=== PATIENT | male | born 1980 | race Caucasian/White ===

== ENCOUNTER 2016-07-18 11:04 | Emergency (ER) | payer SELFPAY ==
--- NOTE | ~2016-07-18 | CR63 ---
[facility] A Service of [facility] RADIOLOGY TEXT RESULTS PATIENT: ZAID COLMENARES LOCATION: [facility] : 76 UNIT #: [id number] AGE: [address]: Jaci Navarro APRN SEX: M ORDER DR: [id number] [facility] [address] [place], [place] [address] [id number] E MR#: [id number] Acc #: [id number] NAME: ZAID COLMENARES : 1980 SEX: M STUDY DATE/TIME: 07/18/2016 10:02 UNIT: [facility] ROOM: STUDY DESCRIPTION: CR Chest 2 View Attending Physician: Jaci Navarro A.P.R.N. Ordering Physician: Elsy Stover M.D. Primary Care Physician: Ferny Quinones M.D. MEDICAL IMAGING REPORT This report is preliminary unless electronic signature is present EXAM Two-view chest INDICATION Cough for the past 3 days. PROCEDURE Frontal and lateral views of the chest. COMPARISON 05/31/2016 FINDINGS Heart size is normal. Lungs are clear. No pleural fluid. No pneumothorax. IMPRESSION No active process. No dense consolidation. Dictated by... Giovanni Cornejo M.D. THIS IS AN ELECTRONICALLY VERIFIED REPORT Giovanni Cornejo M.D. at 07/18/2016 4:51 PM Rizwan TD: 07/18/2016 11:41 JOB #: [id number] MEDICAL IMAGING REPORT Page 1 of 1 COPY
[2016-07-18 10:26] LABS: INFLUENZA A NEG (NEG); INFLUENZA B POS (NEG)
[~2016-07-18 11:04] MED LIST: ALBUTEROL17 GM INH; AMOXICILLI200 MG/5 M PO; AMOXICILLIN250 MG PO; AMOXICILLIN500 M1 PO; ANTIVERT PO; AURALGAN OTIC S10 ML AD; BENZONATATE PO; DERMACORT1 GM EXT; DOXYCYCLINE HY100 M1 PO; FLEXERIL PO; NAPROSYN500 MG PO; NO MEDICATIONS; PEN-VEE K PO; PHENERGAN DM1 ML PO; SUDAFED30 M1 PO; ULTRAM PO; VOLTAREN75 MG PO
== END 2016-07-18 11:35 | disposition home or self-care (01) ==
LOC: CED 11:04
PROVIDERS: Emergency Medicine
DX: J10.1 Influenza due to other identified influenza virus with other respiratory manifestations (principal); J45.909 Unspecified asthma, uncomplicated; F17.210 Nicotine dependence, cigarettes, uncomplicated; Z98.890 Other specified postprocedural states; Z88.6 Allergy status to analgesic agent
CPT/HCPCS: 71020; 87804; 99283

== ENCOUNTER 2016-10-13 18:37 | Inpatient (IN) | payer OTHER ==
--- NOTE | ~2016-10-13 | CR72 ---
[facility] A Service of [facility] & [facility] RADIOLOGY TEXT RESULTS PATIENT: ZAID COLMENARES LOCATION: [facility] : [birth year] UNIT #: [id number] AGE: [address]: Jason Dominguez MD SEX: M ORDER DR: [id number] [facility] [address]. [place], [place] [address] [id number] I MR#: [id number] Acc #: [id number] NAME: ZAID COLMENARES : 1980 SEX: M STUDY DATE/TIME: 10/13/2016 21:19 UNIT: [facility] ROOM: [facility] STUDY DESCRIPTION: CR Chest Single View Portable Attending Physician: Jason Dominguez M.D. Ordering Physician: Andrea Garcia M.D. Primary Care Physician: Ferny Quinones M.D. MEDICAL IMAGING REPORT This report is preliminary unless electronic signature is present EXAM Single view chest INDICATION Chest pain. 1-day duration. FINDINGS Single portable AP view of the chest compared to 07/18/2016. Heart and mediastinal contours are within normal limits. This is no acute consolidation. There is a benign calcified granuloma in the left lower lobe. No pleural effusion. IMPRESSION No acute cardiopulmonary findings. Dictated by... Blayne Tobias M.D. THIS IS AN ELECTRONICALLY VERIFIED REPORT Blayne Tobias M.D. at 10/14/2016 4:55 PM Lizette TD: 10/14/2016 11:01 JOB #: [id number] MEDICAL IMAGING REPORT Page 1 of 1 COPY
--- NOTE | ~2016-10-13 | EKG ---
PATIENT: ZAID COLMENARES UNIT #: [id number] Ventricular Rate: 57 BPM Atrial Rate: 57 BPM P-R Interval: 132 ms QRS Duration: 106 ms Q-T Interval: 474 ms QTC Calculation(Bezet): 461 ms P [place]: 33 degrees Calculated R [place]: 29 degrees Calculated T [place]: 71 degrees Diagnosis Line: Sinus bradycardia Diagnosis Line: T wave abnormality, consider anterolateral Diagnosis Line: ischemia Diagnosis Line: Prolonged QT Diagnosis Line: Abnormal ECG Diagnosis Line: When compared with ECG of 13-OCT-2016 18:42, Diagnosis Line: No significant change was found Diagnosis Line: Confirmed by MALINDA MCCONNELL MD ([id number]) on Diagnosis Line: 10/15/2016 10:50:58 AM INTERPRETING BARBRA ORO
--- NOTE | ~2016-10-13 | EKG ---
PATIENT: ZAID COLMENARES UNIT #: [id number] Ventricular Rate: 69 BPM Atrial Rate: 69 BPM P-R Interval: 136 ms QRS Duration: 98 ms Q-T Interval: 414 ms QTC Calculation(Bezet): 443 ms P [place]: 61 degrees Calculated R [place]: 45 degrees Calculated T [place]: 52 degrees Diagnosis Line: Normal sinus rhythm Diagnosis Line: Nonspecific T wave abnormality Diagnosis Line: Abnormal ECG Diagnosis Line: When compared with ECG of 14-OCT-2016 06:55, Diagnosis Line: (unconfirmed) Diagnosis Line: T wave inversion no longer evident in Anterior Diagnosis Line: leads Diagnosis Line: Confirmed by MALINDA MCCONNELL MD ([id number]) on Diagnosis Line: 10/15/2016 11:06:25 AM INTERPRETING MD: PREETHI
--- NOTE | ~2016-10-13 | HP ---
Unit #: [id number] #: [id number] Patient: ZAID HOLLEY [id number] [address] [place], [place] [address] [id number] I MR#: [id number] NAME: ZAID HOLLEY ROOM: 559 Age: 35 Sex: M Admission Date: 10/13/2016 : 1980 Attending Physician: Jason Dominguez M.D. Primary Care Physician: Ferny Quinones M.D. HISTORY AND PHYSICAL CHIEF COMPLAINT Chest pain. HISTORY Mr. Holley is a 35-year-old white male who was walking from the gas station after picking up a soft drink and as he neared his house, a distance of about half a mile, he started complaining of severe midsternal chest discomfort radiating to both arms, associated with mild diaphoresis and dyspnea. The pains lasted for about 30 to 40 minutes despite his being brought to the emergency room where he was given aspirin. He was given sublingual nitroglycerin, intravenous morphine sulfate and the pain started to subside. Patient had similar pains awakening him from sleep about two days ago at 6:00 a.m. with midsternal chest discomfort as if he had severe indigestion and the pains lasted for about 30 minutes and were spontaneously relieved. He is known to have hypertension. He denies any history of diabetes mellitus or hyperlipidemia. There is no history of syncope, near syncope, transient ischemic attacks or strokes. Patient denies any history of ankle edema, orthopnea or nocturnal dyspnea. There is no history of previous AR. SOCIAL AND PERSONAL HISTORY He denies use of illicit drugs. He smokes a pack of cigarettes a day and has not abused alcohol. FAMILY HISTORY His mother is 64 years of age and had a "small" heart attack a number of years ago. His father of lung cancer. PHYSICAL EXAMINATION GENERAL APPEARANCE: Physical examination reveals a young white male complaining of severe midsternal chest pain. VITAL SIGNS: Blood pressure of 170/115 mmHg. NECK: There was no jugular venous distention. Both carotids had a normal upstroke without any bruits. CARDIAC: Exam showed apical impulse is normal, both heart sounds are normal, no rubs or clicks are audible, there was no murmur. CHEST: Examination showed good air entry bilaterally without any rales or rhonchi. ABDOMEN: Abdominal examination showed no hepatosplenomegaly, free fluid or masses. ANO-RECTAL: Examination is deferred. TOWEL STRETCHER: Examination is within normal limits. Unit #: [id number] #: [id number] Patient: ZAID HOLLEY DIAGNOSTIC STUDIES CARDIOVASCULAR: EKG showed normal sinus rhythm, ST-segment elevation in lead I, aVL, V3 through V6, associated with T-wave inversion. LABORATORY: Cardiac enzymes were normal. DIAGNOSES 1. Probable acute anterolateral wall myocardial infarction in evolution. 2. Uncontrolled hypertension. 3. Nicotine abuse. PLAN Patient was given intravenous morphine, Phenergan, Versed and heparin and was advised to consider cardiac catheterization. By the time he arrived in the catheterization lab all his chest pains had subsided but there was no ST-segment change. Cardiac catheterization was performed in the cardiac catheterization lab which showed normal left ventricular systolic function; no hemodynamically significant fixed coronary stenosis was noted. Most likely this event was vasospastic in origin. He was advised to discontinue use of nicotine. Antihypertensive medicines along with statins would continue. I do not think this represents aortic dissection but a CT scan of the chest with contrast would be performed tomorrow to rule out a remote possibility of dissecting aortic aneurysm. Dictated by Bon Ziegler/david TD: 10/13/2016 20:53 JOB #: [id number] HISTORY AND PHYSICAL Page 1 of 1 X Jason Dominguez MD X HISTORY AND PHYSICAL
--- NOTE | ~2016-10-13 | DS ---
Unit #: [id number] #: [id number] Patient: ZAID COLMENARES [id number] [facility] [address] [place], [place] [address] [id number] I MR#: [id number] NAME: ZAID COLMENARES ROOM: 559 Age: 35 Sex: M Admission Date: 10/13/2016 : 1980 Discharge Date: 10/15/2016 Attending Physician: Jason Dominguez M.D. Primary Care Physician: Ferny Quinones M.D. DISCHARGE SUMMARY DISCHARGE DIAGNOSES 1. Acute anterior wall myocardial infarction. 2. Status post cardiac catheterization on 10/13/[address] Dominguez at [facility] that revealed the following results: a. Left main normal. b. Circumflex artery normal. c. Right coronary artery normal. d. Left anterior descending artery with 60% to 70% stenosis to the first septal branch. e. Left ventricular systolic function of 60%. 3. Hypertensive heart disease secondary to uncontrolled hypertension. 4. Hypokalemia, resolved. 5. Nicotine abuse. 6. Uncontrolled hyperlipidemia. 7. 2D echocardiogram, 10/14/2016, shows an ejection fraction equal to 60% to 65%. Some moderate concentric left ventricular hypertrophy. Mild mitral regurgitation. Mild tricuspid regurgitation. DISCHARGE MEDICATIONS 1. Nicotine 21 mg transdermal patch for 24 hours. 2. Hydrochlorothiazide 25 mg daily. 3. Lipitor 40 mg h.s. 4. Lisinopril 10 mg h.s. 5. Aspirin 81 mg daily. 6. Imdur 30 mg daily. HOSPITAL COURSE This is a 35-year-old white male who presented to the emergency room with a complaint of chest pain. He ruled in for an acute myocardial infarction where his troponin peaked at 3.99. He was treated with aspirin and started on heparin drip. Blood pressure was uncontrolled at 198/115 mmHg. He was started on Imdur, hydrochlorothiazide and lisinopril. Lipid profile was obtained which found him to have uncontrolled hyperlipidemia, LDL was 181, cholesterol 245 and triglycerides 166. He was placed on a statin with Lipitor 40 mg h.s. Cardiac catheterization was recommended because of the acute anterolateral MT. The patient agreed. Cardiac catheterization found the patient to have 60% to 70% stenosis of the first septal branch. Right coronary artery, left main and circumflex arteries were normal. His troponin continued to trend upward. His EKG showed deep anterolateral T-wave inversions in V4 through V6 with some T-wave abnormality in V2 and V3. He was kept an additional day because of upward trend in troponin. He was allowed to ambulate in the hallway where he had no recurrent chest pain. He was hypokalemic during this stay with his potassium level needing supplemental treatment. The following day, the Unit #: [id number] #: [id number] Patient: ZAID COLMENARES patient's troponin trended downward. There was residual T-wave inversion in V4 through V6. His blood pressure was better controlled. Renal function is stable. Right groin is healing well. Echocardiogram revealed no significant valvular heart disease with normal left ventricular systolic function. There was mildly concentric left ventricular hypertrophy. He is stable for discharge today. ASSESSMENT VITAL SIGNS: Blood pressure 107/66, heart rate 76, temperature 98.1. LUNGS: Clear to auscultation. HEART: S1, S2 with regular rate and rhythm. No murmurs, rubs, or clicks. ABDOMEN: Soft, nontender. Good bowel sounds are present. EXTREMITIES: Without leg edema. Pedal pulses are palpable. RIGHT GROIN SITE: Without hematoma or bruising. DIAGNOSTIC STUDIES LABORATORY: Glucose 96, BUN 11, creatinine 1.0, sodium 135, potassium 3.9. Troponin 1.29. CARDIOVASCULAR: EKG normal sinus rhythm rate of 69 beats per minute with T-wave inversion in V4 through V6. DISCHARGE INSTRUCTIONS 1. The patient will be discharged home today. 2. Follow up with Dr. Dominguez on 12/01/2016 at 2 p.m. 3. Follow up with primary care physician in 7-10 days. 4. May return to work on 10/22/2016 without restrictions. 5. The patient will need aggressive risk factor modification with control of his blood pressure, cholesterol levels, and cessation of nicotine abuse. It is felt the patient's EKG changes were old and probably secondary to hypertension. The etiology of the elevated troponin is not known for certain. 6. Continue on CHUCKIE inhibitor and hydrochlorothiazide for control of blood pressure. 7. The patient will receive assistance from his medications at discharge. Dictated by... Carrie RobertsP.R.N. Bon Thomas/senait TD: 10/16/2016 16:58 JOB #: [id number] Unit #: [id number] #: [id number] Patient: ZAID COLMENARES DISCHARGE SUMMARY Page 1 of 1 X Schuyler Reyes APRN X DISCHARGE SUMMARY
--- NOTE | ~2016-10-13 | EKG ---
PATIENT: ZAID COLMENARES UNIT #: [id number] Ventricular Rate: 71 BPM Atrial Rate: 71 BPM P-R Interval: 150 ms QRS Duration: 96 ms Q-T Interval: 412 ms QTC Calculation(Bezet): 447 ms P [place]: 48 degrees Calculated R [place]: 20 degrees Calculated T [place]: 95 degrees Diagnosis Line: Normal sinus rhythm Diagnosis Line: Cannot rule out acute anterolateral wall PR Diagnosis Line: Abnormal ECG Diagnosis Line: When compared with ECG of 10-JAN-2016 00:05, Diagnosis Line: No significant change was found Diagnosis Line: Confirmed by PAPA ZARCO MD ([id number]) on 10/14/2016 Diagnosis Line: 5:49:47 AM INTERPRETING MD: CAROLEE LAM
[2016-10-13 19:23] LABS: POC - CKMB 2.3 ng/mL (0.0-7.9); POC - TROPONIN 0.13 ng/mL (<=0.05)
[2016-10-13 19:30] LABS: BASOPHIL# 0.1 X10e3 (0-0.3); BASOPHIL% 0.6 % (0-2.5); EOSINOPHIL# 0.2 X10e3 (0-0.7); EOSINOPHIL% 1.3 % (0.0-7.0); HEMATOCRIT 50.8 % (38.0-50.0); HEMOGLOBIN 16.9 gm/dL (13.0-16.0); LYMPHOCYTE# 2.4 X10e3 (1.0-3.5); LYMPHOCYTE% 16.8 % (17.0-45.0); MEAN CELL VOLUME 90.9 FL (83-96); MEAN CORPUSCULAR HEMOGLOBIN 30.2 PG (28-34); MEAN CORPUSCULAR HGB CONC 33.2 g/dL (30-36); MEAN PLATELET VOLUME 9.2 FL (6.5-11.5); MONOCYTE# 0.8 X10e3 (0-1.0); MONOCYTE% 5.2 % (3.0-12.0); NEUTROPHIL# 10.9 X10e3 (1.5-7.1); NEUTROPHIL% 76.1 % (40-75); PLATELET COUNT 289 X10e3 (140-420); RED BLOOD COUNT 5.58 X10e (3.90-5.60); RED CELL DISTRIBUTION WIDTH 15.4 % (11.0-15.5); WHITE BLOOD COUNT 14.4 X10e3 (4.0-10.5)
[2016-10-13 19:31] LABS: DIFF IND NO
[2016-10-13 19:41] LABS: PARTIAL THROMBOPLASTIN TIME 27.7 SECONDS (23.5-31.3); PROTHROMBIN TIME (PATIENT) 10.6 SECONDS (10.0-11.7)
[2016-10-13 19:52] LABS: ALBUMIN SERUM 4.1 g/dL (3.5-5.0); BILIRUBIN, DIRECT 0.1 mg/dL (0.0-0.2); BILIRUBIN,INDIRECT 0.5 mg/dL (0.0-0.9); BILIRUBIN,TOTAL 0.6 mg/dL (0.2-2.0); GLOM FILT RATE Estimated 95.7 mL/min (>60); POTASSIUM 3.2 mmol/L (3.5-5.1); PROTEIN TOTAL SERUM 7.3 g/dL (6.0-8.3)
[2016-10-14 00:19] LABS: %MB 9.5 % (0.0-4.0); MB 26.3 ng/ml
[2016-10-14 06:03] LABS: MAGNESIUM 2.3 mg/dL (1.6-3.0); POTASSIUM 3.7 mmol/L (3.5-5.1)
[2016-10-14 06:25] LABS: %MB 10.4 % (0.0-4.0)
[2016-10-14 16:14] LABS: CHOLESTEROL 245 mg/dL (0-200); HDL CHOLESTEROL 31 mg/dL (29-75); LDL/HDL RATIO 6 RATIO (0-4); TRIGLYCERIDES 166 mg/dL (10-160)
[2016-10-14 16:16] LABS: LDL CHOLESTEROL 181 mg/dL (-130)
[2016-10-15 07:52] LABS: CALCIUM SERUM 9.2 mg/dL (8.4-10.2); GLOM FILT RATE Estimated 95.7 mL/min (>60); POTASSIUM 3.9 mmol/L (3.5-5.1)
[2016-10-15 08:16] LABS: %MB 4.6 % (0.0-4.0); MB 6.2 ng/ml
[2016-10-15] MEDS ORDERED: NICOTINE PATCH1 EACH TD (14:04)
[2016-10-15] MEDS ORDERED: HYDROCHLOROTHIA25 MG PO (14:04)
[2016-10-15] MEDS ORDERED: LIPITOR40 MG PO (14:04)
[2016-10-15] MEDS ORDERED: LISINOPRIL20 MG PO (14:05)
[2016-10-15] MEDS ORDERED: ASPIRIN81 M2 PO (14:05)
[2016-10-15] MEDS ORDERED: IMDUR PO (14:06)
== END 2016-10-15 14:45 | disposition home or self-care (01) | DRG 282 ==
LOC: CED 18:37 → C5B 21:42
PROVIDERS: Emergency Medicine; Family Medicine; Internal Medicine Cardiovascular Disease; Nurse Practitioner
PROC: 4A023N7 Measurement of Cardiac Sampling and Pressure, Left Heart, Percutaneous Approach (ICD-10-PCS; 2016-10-13)
PROC: B211YZZ Fluoroscopy of Multiple Coronary Arteries using Other Contrast (ICD-10-PCS; 2016-10-13)
PROC: B215YZZ Fluoroscopy of Left Heart using Other Contrast (ICD-10-PCS; 2016-10-13)
PROC: B24BYZZ Ultrasonography of Heart with Aorta using Other Contrast (ICD-10-PCS; principal; 2016-10-14)
DX: I21.09 ST elevation (STEMI) myocardial infarction involving other coronary artery of anterior wall (principal); I08.1 Rheumatic disorders of both mitral and tricuspid valves; I11.9 Hypertensive heart disease without heart failure; F17.210 Nicotine dependence, cigarettes, uncomplicated; E78.5 Hyperlipidemia, unspecified; I25.10 Atherosclerotic heart disease of native coronary artery without angina pectoris; E87.6 Hypokalemia
CPT/HCPCS: 36415; 71010; 80048; 80061; 80076; 82550; 82553; 83735; 84132; 84484; 85025; 85610; 85730; 93005; 93306; 96374; 96375; 99291; C1769; C1887; C1894; J1644; J2250; J2270; J2550; J3010

== ENCOUNTER 2016-12-21 15:33 | Emergency (ER) | payer OTHER ==
[~2016-12-21] VITALS: Ht 165.1 cm; Wt 83.9 kg
--- NOTE | ~2016-12-21 | CR72 ---
[facility] A Service of [facility] RADIOLOGY TEXT RESULTS PATIENT: ZAID COLMENARES LOCATION: [facility] : [birth year] UNIT #: [id number] AGE: [address]: Andrea Olivera MD SEX: M ORDER DR: [id number] [facility] [address] [place], [place] [address] [id number] E MR#: [id number] Acc #: [id number] NAME: ZAID COLMENARES : 1980 SEX: M STUDY DATE/TIME: 12/21/2016 16:38 UNIT: [facility] ROOM: STUDY DESCRIPTION: CR Chest Single View Portable Attending Physician: Giovanni Olivera M.D. Ordering Physician: Ed Doctor [id number] [facility] Primary Care Physician: No Primary Care Physician MEDICAL IMAGING REPORT This report is preliminary unless electronic signature is present EXAM Frontal chest, 12/21/2016 INDICATIONS A 36-year-old male with chest pain that began at noon today, short of air. Mild congestion. TECHNIQUE Frontal chest compared with 10/13/2016 FINDINGS Cardiac silhouette unremarkable. Vascularity is normal. The right lung is clear. Calcified granulomatous changes in the left and right lung. No pneumothorax. IMPRESSION Old healed granulomatous disease; otherwise, negative frontal chest. Dictated by... Patrick Zaragoza M.D. THIS IS AN ELECTRONICALLY VERIFIED REPORT Patrick Zaragoza M.D. at 12/21/2016 11:16 PM Mindi TD: 12/21/2016 20:02 JOB #: [id number] MEDICAL IMAGING REPORT Page 1 of 1 COPY
--- NOTE | ~2016-12-21 | EKG ---
PATIENT: ZAID COLMENARES UNIT #: [id number] Ventricular Rate: 90 BPM Atrial Rate: 90 BPM P-R Interval: 136 ms QRS Duration: 104 ms Q-T Interval: 328 ms QTC Calculation(Bezet): 401 ms P [place]: 68 degrees Calculated R [place]: 13 degrees Calculated T [place]: 66 degrees Diagnosis Line: Normal sinus rhythm with sinus arrhythmia Diagnosis Line: T wave abnormality, consider anterolateral Diagnosis Line: ischemia Diagnosis Line: Abnormal ECG Diagnosis Line: When compared with ECG of 15-OCT-2016 05:31, Diagnosis Line: No significant change was found Diagnosis Line: Confirmed by SAULO SLADE MD ([id number]) on 12/22/2016 Diagnosis Line: 2:03:14 PM INTERPRETING MD: YANY LAM
--- NOTE | ~2016-12-21 | CO ---
Unit #: [id number] #: [id number] Patient: ZAID HOLLEY [id number] [facility] [address] [place], [place] [address] [id number] E MR#: [id number] NAME: ZAID HOLLEY ROOM: Age: 36 Sex: M Admission Date: 12/21/2016 : 1980 Attending Physician: Andrea Olivera Primary Care Physician: Primary Care Physician No CONSULTATION REPORT CONSULTATION REQUESTING PHYSICIAN Dr. Jorgensen. REASON FOR CONSULTATION REQUEST Chest pain. HISTORY OF PRESENT ILLNESS Mr. Holley is a pleasant 36-year-old male, seen in room #8 at [facility], because of atypical chest discomfort. He has known coronary artery disease, underwent cardiac catheterization for non-ST elevation myocardial infarction anterior on 10/13/2016 showing LAD first septal branch spasm, 60% to 70% stenosis. The circumflex, RCA, and main body of the LAD were normal. Ejection fraction by echo and catheterization was 60%. There is moderate concentric LVH. Mr. Holley has continued to smoke, and has not undergone cardiac rehab. He works as an active job caring [employer], and does not develop chest pain doing this. Today around 1230, he developed a "weird" sensation in his left upper chest, sometimes described as chest pressure. There was no associated diaphoresis, dyspnea, or nausea. It did not radiate. It was different from the pain associated with his infarction. He presented to [facility], and chest pain spontaneously had resolved. He has some nausea and vomiting associated with this. The patient sees Dr. Dominguez for his cardiac conditions, but does not have a PCP. He states he sleeps poorly, snores, and wakes himself up to breathing and snoring. He says he is tired during the day occasionally. PAST SURGICAL HISTORY He has not had any PND, orthopnea, syncope, or presyncope. SOCIAL HISTORY He smokes a pack of cigarettes per day, does not abuse alcohol, but he says he is [place] and likes to drink beer. Denies illicit drugs. FAMILY HISTORY Positive with his mother with a heart attack at age 64. REVIEW OF SYSTEMS As per history of present illness. Otherwise, as stated below. GENERAL: No recent fever or chills. No recent weight change. Unit #: [id number] #: [id number] Patient: ZAID HOLLEY ENDOCRINE: Negative for thyroid disease. HEENT: No auditory or visual disturbances. GASTROINTESTINAL: No melena, no hematochezia. RESPIRATORY: No wheezing or significant dyspnea. He awakens to breath. CARDIOVASCULAR: Vide supra. GENITOURINARY: No dysuria. No back pain suggestive of nephrolithiasis. NEUROLOGIC: No seizure disorder, recent CVA, or TIA. PSYCHOLOGICAL: No depression. MEDICATIONS Hydrochlorothiazide, nicotine patch, vaporized cigarettes, Lipitor, lisinopril, aspirin, Imdur. PAST MEDICAL HISTORY Hypertension, coronary artery disease, cardiac catheterization, asthma, left arm surgery. ALLERGIES Prednisone. PHYSICAL EXAMINATION GENERAL: Pleasant, alert, in no acute distress. VITAL SIGNS: Blood pressure 151/89, heart rate is 84 and regular, respiratory rate is 16. SKIN: Warm and dry. No xanthelasma. MUSCULOSKELETAL: No missing digits. Moves easily for evaluation. NEUROLOGICAL: Appropriate mood and affect. Alert and oriented x3. HEENT: Pupils equal, round and reactive. No oral cyanosis. No icterus. NECK: Carotids clear to auscultation with no carotid bruits. Normal carotid upstroke bilaterally. Thyroid is normal in size and texture without masses or tenderness. CHEST: Clear to auscultation with no rales or wheezes. Good effort. CARDIAC: Normal point of maximum impulse. Normal S1 and S2. No S3, S4 or rub. ABDOMEN: No hepatosplenomegaly, masses or tenderness. Normal bowel sounds. No abdominal bruits heard. EXTREMITIES: No clubbing, cyanosis or edema. Excellent posterior tibial and dorsalis pedis pulses. DIAGNOSTIC STUDIES CARDIOVASCULAR STUDIES: His ECG was reviewed directly and compared with 10/13/2016. Both of the ECG showed T-wave inversion in the lateral and anterolateral leads. LABORATORY RESULTS: Show creatinine 1.0, potassium 3.8. Point of care troponin was normal. Total cholesterol 245, triglycerides 166, LDL 181, HDL 31. White blood count 11.2, hemoglobin 16.3, platelet count 283,000. IMPRESSION 1. Chest pain, atypical for cardiac. Would get a repeat troponin set at 1900. If this is negative, okay to discharge. 2. Coronary artery disease, status post non-ST elevation myocardial infarction related to spasm of this first septal which is 60% to 70% stenosed. 3. Continued tobacco abuse. 4. Mild hypertension. 5. Sleeping poorly. Unit #: [id number] #: [id number] Patient: ZAID HOLLEY RECOMMENDATIONS 1. The patient needs to follow up with Dr. Dominguez in 4 to 6 weeks. 2. The patient needs to undergo rehab. He states he did not do rehab, because he lost his insurance. 3. The patient needs a PCP. 4. The patient needs a sleep evaluation. He can arrange this as an outpatient after discussions with Dr. Dominguez. Thank you very much for this consultation. Dictated by... Bon Orozco/gregor TD: 12/22/2016 13:34 JOB #: [id number] CONSULTATION REPORT Page 1 of 1 X Christian Montes MD X CONSULTATION REPORT
[~2016-12-21 15:33] MED LIST changes: +ASPIRIN81 M2 PO; +HYDROCHLOROTHIA25 MG PO; +IMDUR PO; +LIPITOR40 MG PO; +LISINOPRIL20 MG PO; +NICOTINE PATCH1 EACH TD
[2016-12-21 16:51] LABS: BASOPHIL# 0.1 X10e3 (0-0.3); BASOPHIL% 0.7 % (0-2.5); EOSINOPHIL# 0.2 X10e3 (0-0.7); EOSINOPHIL% 1.7 % (0.0-7.0); HEMATOCRIT 46.8 % (38.0-50.0); HEMOGLOBIN 16.3 gm/dL (13.0-16.0); LYMPHOCYTE# 2.3 X10e3 (1.0-3.5); LYMPHOCYTE% 22.6 % (17.0-45.0); MEAN CELL VOLUME 90.5 FL (83-96); MEAN CORPUSCULAR HEMOGLOBIN 31.5 PG (28-34); MEAN CORPUSCULAR HGB CONC 34.8 g/dL (30-36); MEAN PLATELET VOLUME 8.7 FL (6.5-11.5); MONOCYTE# 0.6 X10e3 (0-1.0); PLATELET COUNT 283 X10e3 (140-420); RED BLOOD COUNT 5.17 X10e (3.90-5.60); RED CELL DISTRIBUTION WIDTH 13.3 % (11.0-15.5); WHITE BLOOD COUNT 10.2 X10e3 (4.0-10.5)
[2016-12-21 16:53] LABS: DIFF IND NO
[2016-12-21 17:02] LABS: POC - CKMB <1.0 ng/mL (0.0-7.9); POC - TROPONIN <0.05 ng/mL (<=0.05)
[2016-12-21 17:03] LABS: INR 0.9; PROTHROMBIN TIME (PATIENT) 10.3 SECONDS (10.0-11.7)
[2016-12-21 17:18] LABS: BILIRUBIN, DIRECT 0.1 mg/dL (0.0-0.2); BILIRUBIN,INDIRECT 0.4 mg/dL (0.0-0.9); BILIRUBIN,TOTAL 0.5 mg/dL (0.2-2.0); CALCIUM SERUM 9.6 mg/dL (8.4-10.2); GLOM FILT RATE Estimated 95.1 mL/min (>60); POTASSIUM 3.8 mmol/L (3.5-5.1); PROTEIN TOTAL SERUM 7.5 g/dL (6.0-8.3)
[2016-12-21 17:59] LABS: AMPHETAMINE NEG (NEG); BARBITURATES NEG (NEG); BENZODIAZEPINES NEG (NEG); COCAINE NEG (NEG); MARIJUANA NEG (NEG); OPIATES NEG (NEG); TRICYCLIC ANTIDEPRESSANTS NEG (NEG); U METHADONE NEG (NEG)
[2016-12-21 18:28] LABS: POC - CKMB 1.1 ng/mL (0.0-7.9); POC - TROPONIN <0.05 ng/mL (<=0.05)
[2016-12-21 19:35] LABS: POC - CKMB <1.0 ng/mL (0.0-7.9); POC - TROPONIN <0.05 ng/mL (<=0.05)
== END 2016-12-21 20:00 | disposition home or self-care (01) ==
LOC: CED 15:33
PROVIDERS: Emergency Medicine
DX: R07.89 Other chest pain (principal); R11.2 Nausea with vomiting, unspecified; R42 Dizziness and giddiness; I25.2 Old myocardial infarction; I25.10 Atherosclerotic heart disease of native coronary artery without angina pectoris; I10 Essential (primary) hypertension; E78.5 Hyperlipidemia, unspecified; J45.909 Unspecified asthma, uncomplicated; F17.200 Nicotine dependence, unspecified, uncomplicated; Z95.818 Presence of other cardiac implants and grafts; Z79.82 Long term (current) use of aspirin; Z79.899 Other long term (current) drug therapy
CPT/HCPCS: 36415; 71010; 80048; 80076; 80307; 82553; 84484; 85025; 85610; 85730; 93005; 99285